=== PATIENT | female | born 1985 | race Caucasian/White ===

== ENCOUNTER 2018-08-07 11:37 | Day surgery (SDC) | payer OTHER ==
[2018-08-07] MEDS ORDERED: PROPOFOL 20 ML (14:01)
== END 2018-08-07 15:09 | disposition home or self-care (01) ==
LOC: GIL 11:37
DX: K21.0 Gastro-esophageal reflux disease with esophagitis (principal); K29.00 Acute gastritis without bleeding
CPT/HCPCS: 43239; 88305; 88312; 88313